=== PATIENT | male | born 2000 ===

== ENCOUNTER 2024-10-02 16:31 | Emergency (ER) | payer MEDICAID ==
[~2024-10-02] VITALS: Ht 175.3 cm; Wt 47.7 kg
[2024-10-02 16:32] VITALS: BP 114/63; PULSE 94; RESP 20; TEMP 97.6; O2SAT 99
[2024-10-02 17:31] LABS: HEMOGLOBIN 15.1 g/dl (14.0-17.9); LYMPHOCYTES # (AUTO) 1.4 X10'3 (1.1-4.8); MEAN PLATELET VOLUME 9.3 FL (7.4-10.4); MONOCYTES # (AUTO) 0.5 X10'3 (0-0.9); NEUTROPHILS # (AUTO) 3.2 X10'3 (1.8-7.7)
[2024-10-02 17:32] LABS: BASOPHILS % (AUTO) 0.3 % (0-1); EOSINOPHILS % (AUTO) 0.4 % (0-6); HEMATOCRIT 44.3 % (42.0-52.0); LYMPHOCYTES % (AUTO) 27.8 % (21-51); MEAN CORPUSCULAR HEMOGLOBIN 30.8 PG (27.0-31.0); MEAN CORPUSCULAR VOLUME 90.6 FL (78-98); MONOCYTES % (AUTO) 9.2 % (2-12); NEUTROPHILS % (AUTO) 62.3 % (42-75); PLATELET COUNT 185 X10'3 (140-440); RED BLOOD COUNT 4.88 X10'6 (4.70-6.10); RED CELL DISTRIBUTION WIDTH 13.7 % (11.5-14.5); WHITE BLOOD COUNT 5.2 X10'3 (4.5-11.0)
[2024-10-02 17:42] LABS: ALANINE AMINOTRANSFERASE 123 U/L (12-78); ALBUMIN/GLOBULIN RATIO 1.1 (1.1-1.5); ALKALINE PHOSPHATASE 73 IU/L (46-116); ANION GAP 8 (8-16); ASPARTATE AMINO TRANSFERASE 88 U/L (10-37); BILIRUBIN,TOTAL 0.4 MG/DL (0.1-1.0); BLOOD UREA NITROGEN 11 MG/DL (7-18); BUN/CREATININE RATIO 16.4 (10.0-20.0); CALCIUM 9.1 MG/DL (8.5-10.1); CHLORIDE 104 MMOL/L (99-107); CREATININE 0.67 MG/DL (0.60-1.10); GLUCOSE 84 MG/DL (70-104); LIPASE 41 U/L (16-77); POTASSIUM 3.6 MMOL/L (3.5-5.1); SODIUM 141 MMOL/L (135-145); TOTAL CARBON DIOXIDE 29.3 MMOL/L (24-32); TOTAL PROTEIN 7.6 G/DL (6.4-8.2); eCRCL 117 ML/MIN; eGFR > 90 ML/MIN
== END 2024-10-02 19:35 | disposition left against medical advice (07) ==
LOC: ER 16:32
DX: R11.2 Nausea with vomiting, unspecified (principal); Z53.21 Procedure and treatment not carried out due to patient leaving prior to being seen by health care provider
CPT/HCPCS: 80053; 83690; 85025

== ENCOUNTER 2025-05-16 14:41 | Emergency (ER) | payer MEDICAID ==
[~2025-05-16] VITALS: Ht 175.3 cm; Wt 55.1 kg
--- NOTE | 2025-05-16 15:02 | Physician Documentation ---
History of Present Illness ~ Stated Complaint: CHEST PAIN Time Seen by MD: 16:47 OK to notify your PCP?: Yes Source: patient Mode of Arrival: POV Exam Limitations: no limitations HPI 24-year-old male presents with left-sided chest pressure and tightness which radiates down his left arm for the past 2 hours. He states the pain feels like something is squeezing on his heart constantly. He states that he has had this type of pain on and off for the past 2-3 days which typically resolves but this time it has not. He also notices that at times he does have an irregular heart beat. He has not taken any aspirin or nitro prior to arrival. He has no cardiac history. He states that couple of years ago he was told he had stage II hypertension but did not receive any treatment and was seen at primary care afterwards and his blood pressure was normal. He has not had an echocardiogram done but he states that he has had an abnormal EKG in the past. He reports that the pain is not worse with a deep breath or certain movements, and there is no tenderness to palpation of his chest wall. Medication Reconciliation Allergies: Coded Allergies: No Known Allergies (Unverified , 10/02/24) Review of Systems All Other Systems at this time: Reviewed and Negative Physical Exam Vital Signs: RN Vital Signs have been reviewed: Yes Pulse Oximetry Reflects: adequate oxygenation Physical Exam General: Alert, no apparent distress. HEENT: PERRL, EOMI, no injection, moist mucous membranes. Neck: Full range of motion. Respiratory: Lungs clear, no respiratory distress. Chest: No accessory muscle use. Chest wall is nontender to palpation. Cardiovascular: Regular rate and rhythm, no murmurs. Gastrointestinal: Soft, nontender, nondistended. Bowels sounds present. Extremities: Normal range of motion, no deformity. Neurologic: Oriented x4. Psychiatric: Normal mood and affect. Skin: Normal color, warm and dry. No edema, no ecchymosis. Procedures Ultrasound Ultrasound: normal Procedure Noted Performed a bedside point of care echocardiogram which is interpreted by myself: Shows good biventricular size and function, no biatrial enlargement, no pericardial effusion, no ventricular hypertrophy. Progress Results/Orders Reviewed/noted all lab results: Yes Results/Orders Orders - [facility] Chest,Single View (05/16/25 15:14) Monitor (05/16/25 14:59) Saline Lock (05/16/25 14:59) Oxygen (05/16/25 14:59) Electrocardiogram (05/16/25 14:59) Us Chest Echo (05/16/25 ) Completed Orders - [facility] Chest,Single View (05/16/25 15:14) Aspirin 81mg Chew Tablet (Aspirin 81mg C (05/16/25 15:00) Cbc/Diff (05/16/25 14:59) BMP (05/16/25 14:59) PBNP (05/16/25 14:59) Hs Troponin I W Calculations (05/16/25 14:59) Ibuprofen Tablet (Motrin Tablet) (05/16/25 17:25) Ibuprofen Tablet (Motrin Tablet) (05/16/25 17:30) Medications Received in ER Medications (Trade) Dose Ordered Sig/Chris Route PRN Reason Start Time Stop Time Status Last Admin Dose Admin (Motrin tablet) 600 mg ONCE ONCE PO 05/16/25 17:30 05/16/25 17:31 DC 05/16/25 17:32 600 MG Vital Signs 05/16/25 05/16/25 15:09 17:38 Temp 98.4 98.4 Pulse 83 75 Resp 18 18 B/P (MAP) 117/71 120/69 Pulse Ox 97 98 O2 Flow Rate 0 Laboratory Tests Test 05/16/25 15:02 White Blood Count 4.9 Red Blood Count 5.20 Hemoglobin 16.3 Hematocrit 46.9 Mean Corpuscular Volume 90.2 Mean Corpuscular Hemoglobin 31.3 H Mean Corpuscular Hemoglobin Concent 34.7 Red Cell Distribution Width 13.1 Platelet Count 237 Mean Platelet Volume 9.4 Neutrophils (%) (Auto) 63.8 Lymphocytes (%) (Auto) 28.0 Monocytes (%) (Auto) 5.8 Eosinophils (%) (Auto) 1.2 Basophils (%) (Auto) 1.2 H Neutrophils # (Auto) 3.1 Lymphocytes # (Auto) 1.4 Monocytes # (Auto) 0.3 Eosinophils # (Auto) 0.1 Basophils # (Auto) 0.1 CBC Comment Sodium Level 140 Potassium Level 3.8 Chloride Level 103 Carbon Dioxide Level 30.4 Anion Gap 7 L Blood Urea Nitrogen 11 Creatinine 0.64 Estimated GFR/1.73 m2 > 90 BUN/Creatinine Ratio 17.2 Glucose Level 94 Calcium Level 9.8 Troponin I High Sensitivity 4 Pro-B-Type Natriuretic Peptide 69 Albumin 4.7 Chemistry Comments EKG/XRAY/CT/US/VASC/MRI EKG : Additional Comment Electrocardiogram: as interpreted by me; normal sinus rhythm, no acute ischemia, normal intervals, no pre-excitation pattern. Possible bi atrial enlargement Chest X-Ray : Additional Comments Chest x-ray: as interpreted by me; no large effusion, no large infiltrate, normal mediastinum. Heart Score: Heart Score Response (Comments) Value History Slightly Suspicious 0 EKG Normal 0 Age <45 0 Risk Factors No known risk factors 0 Troponin Normal limit 0 Total 0 Medical Decision Making Additional info obtained from: old records Findings He is a 24-year-old with chest pain which is squeezing sensation around the heart which is came and went for the past few days in his now persisting for the past 2 hours. Ordered a chest pain protocol as well as EKG and chest x-ray, which was all unremarkable. His EKG shows possible biatrial enlargement. His troponins was negative. His heart score 0. Due to his story sounds like it may be musculoskeletal but could also be something such as hypertrophic cardiomyopathy or pericarditis. Physical exam is unremarkable he has no tenderness to palpation along the chest wall. I did a bedside point of care echocardiogram which revealed normal biventricular and biatrial size and function, no hypertrophic cardiomyopathy, no pulmonary hypertension and no pericardial effusion. He does not have any shortness of breath or increased chest pain with deep breaths. This is on the left side of his chest only. I am not concerned for a PE when using the PERC rule. I discussed the findings with the patient as well as his discharge instructions. He understands the plan. Heart Score: 0 Differential Dx:Considerations: Include: angina, aortic dissection, CHF, costochondritis, esophageal reflux/spasm, myocardial infarction, pericarditis, pneumonia Additional Information Hypertrophic cardiomyopathy, pericardial effusion, cardiac tamponade, pulmonary embolus. Departure Disposition: HOME / SELF CARE / HOMELESS Impression: Primary Impression: Chest wall pain Condition: Stable Discharge Instructions: Chest Wall Pain Additional Instructions: Take ibuprofen 600 mg 3 times daily for 5 days straight to help decrease the inflammation and help with the pain relief. Please return back here for any new or worsening symptoms. Follow up with the primary care provider in the next week. Referrals: NO PRIMARY CARE PROVIDER (PCP) Additional Comment Medical Screen Exam This patient recieved a medical screening examination. After reviewing the individual's medical complaints with presenting symptoms and performing an appropriate physical examination, it was determined that no immediate life- threatening emergency medical condition is present. This individual is also not a women having contractions. Signature Scribe Signature: . Attestation: Scribed for Sade Singletonp by Sade Benavides NP . 05/16/25 22:38 Parts of this note were created using [employer] voice recognition software program. While efforts were made to correct any mistakes made by this voice recognition software program, nonsensical phrases may remain in this note. In addition, there may be errors and syntax, grammar, content and spelling. [facility] May 16, 2025 15:02
--- NOTE | 2025-05-16 15:25 | RADIOLOGY REPORT ---
CHEST RADIOGRAPH Indication: CP Technique: Single frontal view of the chest was obtained Comparison: None FINDINGS: Lines and Tubes: None Lungs: No focal consolidation. Pleura: No effusion. No pneumothorax. Cardiomediastinal contours: Unremarkable Bones: No acute osseous abnormality. IMPRESSION: No acute cardiopulmonary disease.
[2025-05-16 15:27] LABS: MEAN PLATELET VOLUME 9.4 FL (7.4-10.4); RED CELL DISTRIBUTION WIDTH 13.1 % (11.5-14.5)
[2025-05-16 15:49] LABS: CREATININE 0.64 MG/DL (0.60-1.10); PRO BRAIN NATRIURETIC PEPTIDE 69 PG/ML (0-125); TOTAL CARBON DIOXIDE 30.4 MMOL/L (24-32); eCRCL 140 ML/MIN; eGFR > 90 ML/MIN
[2025-05-16] MEDS ORDERED: ibuprofen tablet 400 MG TABLET PO ONE (17:25)
[2025-05-16 17:38] VITALS: BP 120/69; PULSE 75; RESP 18; TEMP 98.4; O2SAT 98
--- NOTE | 2025-05-17 06:44 | ELECTROCARDIOGRAPH REPORT ---
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
== END 2025-05-16 17:35 | disposition home or self-care (01) ==
LOC: ER 14:42
DX: R07.89 Other chest pain (principal)
CPT/HCPCS: 36415; 71045; 80048; 83880; 84484; 85025; 93005; 99285